=== PATIENT | male | born 1970 | race Caucasian/White ===

== ENCOUNTER → 2024-06-13 08:20 | Outpatient (REF) | payer BC, SELFPAY | LOC: RCS 08:20 | PROVIDERS: ATTENDING PHYSICIAN Internal Medicine | DX: R07.89 Other chest pain (principal) | CPT/HCPCS: 93017; 71046; 93350 ==

== ENCOUNTER → 2024-07-04 15:00 | Outpatient (REF) | payer BC, SELFPAY ==
[2024-07-04 16:13] LABS: % Basophils 0.9 % (0-2); % Immature Granulocytes 0.3 % (0-0.5); % Lymphocytes 35.4 % (20.5-51.1); % Monocytes 5.8 % (1.7-9.3); % Neutrophils 55.6 % (42.2-75.2); Absolute Basophils 0.1 10^3/uL (0-0.2); Absolute Eosinophils 0.2 10^3/uL (0-0.7); Absolute Lymphocytes 3.1 10^3/uL (1.2-3.4); Absolute Monocytes 0.5 10^3/uL (0.1-0.6); Absolute Neutrophils 4.8 10^3/uL (1.4-6.5); Hematocrit 42.9 % (39.0-52.0); Hemoglobin 15.2 g/dL (13.0-18.0); Mean Corp Hgb Conc. 35.4 g/dL (33.0-37.0); Mean Corpuscular Hgb 32.4 pg (27.0-31.0); Mean Corpuscular Volume 91.5 fL (80.0-94.0); Mean Platelet Volume 10.2 fL (7.4-10.4); Nucleated Red Blood Cells % 0 % (-); Platelet Count 268 10^3/uL (130-400); Red Blood Cell Count 4.69 10^6/uL (4.70-6.10); White Blood Cell Count 8.6 10^3/uL (4.8-10.8)
[2024-07-04 16:34] LABS: ALT (SGPT) 25 U/L (0-50); AST (SGOT) 27 U/L (17-59); Albumin 4.6 g/dl (3.5-5.0); Alkaline Phosphatase 85 U/L (38-126); Blood Urea Nitrogen 15 mg/dl (9-20); Calcium 9.4 mg/dl (8.4-10.2); Carbon Dioxide 26 mmol/L (22-30); Chloride 102 mmol/L (98-107); Glucose 90 mg/dl (70-99); Potassium 3.9 mmol/L (3.5-5.1); Sodium 141 mmol/L (135-145); Total Protein 7.4 g/dl (6.3-8.2); eGFR > 60.00
[2024-07-04 17:05] LABS: TSH Reflex To Free T4 2.24 uIU/ml (0.47-4.68)
== END ==
LOC: REG 15:00
PROVIDERS: ATTENDING PHYSICIAN Hospitalist
DX: R41.89 Other symptoms and signs involving cognitive functions and awareness (principal)
CPT/HCPCS: 36415; 80053; 84443; 85025; 86618

== ENCOUNTER → 2024-07-23 15:45 | Outpatient (REF) | payer BC, SELFPAY | LOC: RAD 15:45 | PROVIDERS: ATTENDING PHYSICIAN Hospitalist; FAMILY PHYSICIAN Internal Medicine | DX: R41.89 Other symptoms and signs involving cognitive functions and awareness (principal) | CPT/HCPCS: 70450 ==

== ENCOUNTER → 2025-07-30 06:22 | Outpatient (REF) | payer BC, SELFPAY ==
[2025-07-30 07:25] LABS: Hematocrit 44.1 % (39.0-52.0); Hemoglobin 15.2 g/dL (13.0-18.0); Mean Corp Hgb Conc. 34.5 g/dL (33.0-37.0); Mean Corpuscular Volume 90.7 fL (80.0-94.0); Nucleated Red Blood Cells % 0 % (-); Platelet Count 292 10^3/uL (130-400); Red Cell Dist. Width 13.2 % (11.5-14.5)
[2025-07-30 07:43] LABS: ALT (SGPT) 22 U/L (0-50); AST (SGOT) 23 U/L (17-59); Albumin 4.6 g/dl (3.5-5.0); Alkaline Phosphatase 79 U/L (38-126); Blood Urea Nitrogen 13 mg/dl (9-20); Calcium 9.4 mg/dl (8.4-10.2); Carbon Dioxide 28 mmol/L (22-30); Chloride 105 mmol/L (98-107); Glucose 104 mg/dl (70-99); HDL Cholesterol 59 mg/dl; LDL Cholesterol, Calculated 167 mg/dl; Potassium 3.8 mmol/L (3.5-5.1); Sodium 142 mmol/L (135-145); Total Protein 7.6 g/dl (6.3-8.2); Very Low Density Lipoprotein 53 mg/dl (0-30); eGFR > 60.00
[2025-07-30 08:11] LABS: PSA, Total - Screen 3.20 ng/ml (0.0-4.0)
== END ==
LOC: REG 06:22
PROVIDERS: ATTENDING PHYSICIAN Hospitalist
DX: Z12.5 Encounter for screening for malignant neoplasm of prostate (principal); E78.5 Hyperlipidemia, unspecified; Z00.00 Encounter for general adult medical examination without abnormal findings
CPT/HCPCS: 36415; 80053; 80061; 85025; G0103

== ENCOUNTER 2025-08-07 06:17 | Day surgery (SDC) | payer BC, SELFPAY | END 2025-08-07 08:41 | disposition home or self-care (01) | LOC: GI 06:17 | PROVIDERS: ATTENDING PHYSICIAN Internal Medicine Gastroenterology | DX: Z12.11 Encounter for screening for malignant neoplasm of colon (principal); K57.30 Diverticulosis of large intestine without perforation or abscess without bleeding; K64.8 Other hemorrhoids; K63.5 Polyp of colon; Z86.0100 Personal history of colon polyps, unspecified | CPT/HCPCS: 45380; 88305 ==

== ENCOUNTER → 2025-09-09 17:32 | Outpatient (REF) | payer BC, SELFPAY | LOC: RAD 17:32 | PROVIDERS: ATTENDING PHYSICIAN Hospitalist | DX: N50.89 Other specified disorders of the male genital organs (principal) | CPT/HCPCS: 76870; 93976 ==